=== PATIENT | female | born 1950 | race Caucasian/White ===

== ENCOUNTER → 2017-03-05 | Outpatient (CLI) | payer MEDICARE, OTHER ==
[2014-04-21 02:16] VITALS: BP 118/58
[~2017-03-05] VITALS: Ht 165.1 cm; Wt 99.8 kg
[~2017-03-05] MED LIST: BUPR100T6 PO; HYDR-2758 PO; MULT1TAB52 PO; NAPR-514 PO; PRIM50TA PO; PROP20TA PO; SINCALIDE 2 MCG in IV NORMAL SALINE 50ML 30 ML IV ONE; VALS1TAB8 PO; VENL75CA PO; [UNRECOGNIZED DRUG - OTHER] PO
--- NOTE | 2017-03-05 09:29 | RAD ---
Right upper quadrant abdominal ultrasound, 03/05/2017: History: Pain The gallbladder is within normal limits in size. There is no sonographic evidence of cholelithiasis. The common hepatic duct is of normal caliber. No hepatic mass is evident. The visualized portions of the pancreas are unremarkable. There is a 2.6 cm simple cyst in the right kidney. The right kidney shows no other abnormality. IMPRESSION: 1. No significant gallbladder abnormality is detected. 2. Small right renal cyst.
--- NOTE | 2017-03-05 11:41 | RAD ---
Radionuclide hepatobiliary scan with gallbladder ejection fraction, 03/05/2017: History: Right upper quadrant pain Following IV injection of 5.5 mCi of technetium 99m Choletec there was prompt uptake of the radionuclide from the blood stream by the liver. Activity is present in the bile ducts and small bowel at 10 minutes. Gallbladder activity develops at 25 minutes. Additional imaging of the gallbladder was then performed following IV injection of 2.0 mcg of cholecystokinin. The gallbladder ejection fraction is 93%. IMPRESSION: 1. Normal radionuclide hepatobiliary scan. 2. The gallbladder ejection fraction is 93%.
== END ==
LOC: US 07:30
PROVIDERS: ATTEND Internal Medicine Gastroenterology
DX: R10.11 Right upper quadrant pain (principal); I10 Essential (primary) hypertension
CPT/HCPCS: 76705; 78226; 96374; 96375; A9537; J2805

== ENCOUNTER → 2017-04-08 | Outpatient (CLI) | payer MEDICARE, OTHER ==
[2014-04-21 02:16] VITALS: BP 118/58
[~2017-04-08] MED LIST changes: -NAPR-514 PO; +NAPR500T4 PO; -SINCALIDE 2 MCG in IV NORMAL SALINE 50ML 30 ML IV ONE
--- NOTE | 2017-04-08 15:51 | RAD ---
Left breast ultrasound History: Outside 3-D mammogram raises possibility of asymmetry in the left breast on MLO tomographic views. Comparison: MLO tomographic views from outside mammogram 12/08/2016. CC tomographic views were not available or obtained. Findings: Ultrasound imaging was performed of the left breast by tissue technologist at 2:00 and 3:00. No solid or cystic masses are identified. Normal breast parenchyma is seen. Impression: No sonographic abnormality. BI-RADS CATEGORY: 1 NEGATIVE RECOMMENDED FOLLOW-UP: 12M 12 MONTH FOLLOW-UP
== END | disposition home or self-care (01) ==
LOC: US 14:31
PROVIDERS: ATTEND Nurse Practitioner Family
DX: R92.8 Other abnormal and inconclusive findings on diagnostic imaging of breast (principal)
CPT/HCPCS: 76641

== ENCOUNTER → 2018-01-04 | Outpatient (CLI) | payer MEDICARE, OTHER ==
[2014-04-21 02:16] VITALS: BP 118/58
[~2018-01-04] MED LIST changes: +NAPR-514 PO; -NAPR500T4 PO
--- NOTE | 2018-01-04 13:20 | RAD ---
PQRS Compliance statement: One or more of the following individualized dose reduction techniques were utilized for this examination: 1. Automated exposure control. 2. Adjustment of the mA and/or kV according to patient size. 3. Use of iterative reconstruction technique. Indication:FALL FIVE DAYS AGO. Bruising AROUND BILATERAL EYES, SOME SWELLING. NO LOC, NAUSEA OR VISUAL DISTURBANCE. FX NASAL BONES
TECHNIQUE: CT of the maxillofacial bones without IV contrast multiplanar reformats. COMPARISON: None FINDINGS: Mildly displaced right nasal bone fracture. Hyperostosis frontalis noted. Diffuse dystrophic calcifications are seen of the falx cerebri. No acute calvarial fractures. The paranasal sinuses and mastoid air cells are clear. The mandible and temporomandibular joints are within normal limits. The lenses, globes, extraocular muscles and intraorbital fat are within normal limits. Mild bilateral periorbital soft tissue swelling noted. IMPRESSION: Mildly displaced right nasal bone fracture. Indication:FALL FIVE DAYS AGO. BRUSING AROUND BILATERAL EYES, SOME SWELLING. NO LOC, NAUSEA OR VISUAL DISTURBANCE. FX NASAL BONES
TECHNIQUE: CT of the cervical spine without IV contrast with multiplanar reformats. COMPARISON:None FINDINGS: There is loss of normal cervical lordosis. This could be due to muscle spasm or positioning. Atlantoaxial joint interval is preserved with mild degenerative changes. No compression deformities. Facet joints are in normal anatomic alignment. Multilevel intervertebral disc space narrowing is seen with endplate sclerosis and multilevel facet arthropathy. No acute fractures. Segmental analysis: C2-C3: Mild circumferential disc bulge flattening anterior thecal sac. Mild bilateral facet arthropathy. No neuroforamina narrowing. C3-C4: Mild circumferential disc bulge flattening intrathecal sac. Severe left and mild right facet arthropathy. Severe left and moderate right neuroforamina narrowing. C4-C5: Mild circumferential disc bulge flattening intrathecal sac. Severe bilateral facet arthropathy. Severe bilateral neuroforamina narrowing. C5-C6: Large central disc osteophyte complex indenting anterior thecal sac. Moderate bilateral facet arthropathy. Moderate bilateral neuroforamina narrowing. There is moderate spinal canal narrowing measuring 6 mm in AP dimension. C6-C7: Mild circumferential disc bulge. Severe bilateral facet arthropathy. Severe bilateral neuroforamina narrowing. The noncontrast appearance of the neck soft tissues are within normal limits. Clear lung apices. IMPRESSION: 1. No acute fractures. 2. Multilevel degenerative disc disease and facet arthropathy causing varying amount of neural foramina narrowing and spinal canal narrowing as described above. Electronically signed by: Sukumar Etienne DO (01/04/2018 1:17 PM) [facility]
== END | disposition home or self-care (01) ==
LOC: CT 10:59
PROVIDERS: ATTEND Neuromusculoskeletal Medicine & OMM
DX: S02.2XXA Fracture of nasal bones, initial encounter for closed fracture (principal); M50.30 Other cervical disc degeneration, unspecified cervical region; M25.78 Osteophyte, vertebrae; M48.02 Spinal stenosis, cervical region; M12.88 Other specific arthropathies, not elsewhere classified, other specified site; M85.2 Hyperostosis of skull; M79.89 Other specified soft tissue disorders; W19.XXXA Unspecified fall, initial encounter; Y93.89 Activity, other specified; Y92.89 Other specified places as the place of occurrence of the external cause; Y99.8 Other external cause status
CPT/HCPCS: 70486; 72125

== ENCOUNTER 2018-05-28 02:58 | Observation (INO) | payer MEDICARE, OTHER ==
[~2018-05-28] VITALS: Ht 165.1 cm; Wt 115.4 kg
[2018-05-28] VITALS (8 sets, daily range): BP systolic 148–186; BP diastolic 75–101
[~2018-05-28 02:58] MED LIST changes: +HYDR-2155 PO; -HYDR-2758 PO
[2018-05-28] MEDS ORDERED: VITA1TAB3 PO (03:38)
[2018-05-28] MEDS ORDERED: vitamin D (03:38)
--- NOTE | 2018-05-28 03:38 | PHYS DOC ---
Adult General Chief Complaint Chief Complaint cp HPI HPI 68 years old female presented to the hospital with the chest pain described as pressure-like rated as 5 out of 10 FROM sleep and radiated to her jaw did not associated with shortness breath or sweating felt a little bit of tachycardia and then resolved she never experienced this pain before denies any history of coronary artery disease in emergency department her pain level 2/10 Review of Systems Review of Systems Constitutional: Denies fever or chills [] Eyes: Denies change in visual acuity, redness, or eye pain [] HENT: Denies nasal congestion or sore throat [] Respiratory: Denies cough or shortness of breath [] Cardiovascular: No additional information not addressed in HPI [] GI: Denies abdominal pain, nausea, vomiting, bloody stools or diarrhea [] : Denies dysuria or hematuria [] Musculoskeletal: Denies back pain or joint pain [] Integument: Denies rash or skin lesions [] Neurologic: Denies headache, focal weakness or sensory changes [] Endocrine: Denies polyuria or polydipsia [] All other systems were reviewed and found to be within normal limits, except as documented in this note. Current Medications Current Medications Current Medications Medications (Trade) Dose Ordered Sig/Celia Start Time Stop Time Status Last Admin Dose Admin Aspirin (Tish Aspirin) 325 mg 1X ONCE 05/28/18 03:45 05/28/18 03:46 UNV Allergies Allergies Allergies Coded Allergies Type Severity Reaction Last Updated Verified ampicillin Allergy Intermediate rash 11/27/13 No codeine Allergy Unknown RASH 04/21/14 No Physical Exam Physical Exam Constitutional: Well developed, well nourished, no acute distress, non-toxic appearance. [] HENT: Normocephalic, atraumatic, bilateral external ears normal, oropharynx moist, no oral exudates, nose normal. [] Eyes: PERRLA, EOMI, conjunctiva normal, no discharge. [] Neck: Normal range of motion, no tenderness, supple, no stridor. [] Cardiovascular:Heart rate regular rhythm, no murmur [] Lungs & Thorax: Bilateral breath sounds clear to auscultation [] Abdomen: Bowel sounds normal, soft, no tenderness, no masses, no pulsatile masses. [] Skin: Warm, dry, no erythema, no rash. [] Back: No tenderness, no CVA tenderness. [] Extremities: No tenderness, no cyanosis, no clubbing, ROM intact, no edema. [] Neurologic: Alert and oriented X 3, normal motor function, normal sensory function, no focal deficits noted. [] Psychologic: Affect normal, judgement normal, mood normal. [] EKG EKG No acute ischemic changes[] Radiology/Procedures Radiology/Procedures [] Course & Med Decision Making Course & Med Decision Making Pertinent Labs and Imaging studies reviewed. (See chart for details) [] Final Impression Final Impression [] Problems: (1) Chest pain Qualifiers: Dragon Disclaimer Dragon Disclaimer This electronic medical record was generated, in whole or in part, using a voice recognition dictation system. ANTONIO NICHOLS MD May 28, 2018 03:38
[2018-05-28 03:42] LABS: HEMATOCRIT 41.1 % (36.0-47.0); HEMOGLOBIN 13.4 g/dL (12.0-15.5); RED BLOOD COUNT 4.83 x10^6/uL (3.50-5.40); RED CELL DISTRIBUTION WIDTH 14.5 % (11.5-14.5); WHITE BLOOD COUNT 5.1 x10^3/uL (4.0-11.0)
[2018-05-28] MEDS ORDERED: NITROGLYCERIN SUBLINGUAL 0.4 MG BOTTLE OF 25. SL PRN (03:45)
[2018-05-28] MEDS ORDERED: MORPHINE SULFATE 4 MG/ML DISP.SYRIN. IV PRN (03:45)
[2018-05-28] MEDS ORDERED: NITROGLYCERIN SUBLINGUAL 0.4 MG BOTTLE OF 25. SL ONE (03:45)
[2018-05-28] MEDS ORDERED: PANTOPRAZOLE 40 MG TABLET. PO ONE (03:45)
[2018-05-28] MEDS ORDERED: ASPIRIN 325 MG TABLET PO ONE (03:45)
[2018-05-28] MEDS ORDERED: NITROGLYCERIN OINT 1 GM PACKET. TP ONE (03:45)
[2018-05-28] MEDS ORDERED: ACETAMINOPHEN 325 MG TABLET PO PRN (03:45)
[2018-05-28] MEDS ORDERED: ONDANSETRON PF 4 MG/2 ML VIAL. IV PRN (03:45)
[2018-05-28 03:57] LABS: CALCIUM 9.1 mg/dL (8.5-10.1); CREATININE 1.1 mg/dL (0.6-1.0); GFR 49.1
--- NOTE | 2018-05-28 07:45 | RAD ---
PROCEDURE: CHEST AP ONLY CLINICAL INDICATION: Chest pain COMPARISON: None FINDINGS: No pneumothorax identified. Cardiac and mediastinal contours unremarkable. No pulmonary consolidation or acute airspace disease. No acute osseous abnormalities identified. IMPRESSION: No pulmonary consolidation or acute airspace disease. Electronically signed by: Sukumar Etienne DO (05/28/2018 7:42 AM) [facility]
--- NOTE | 2018-05-28 09:08 | PDOC2 ---
CONSULT Date of Admission DATE: 05/28/18 TIME: 09:08 History of Present Illness Ms Aleman is a 68 year old female patient with history of hypertension, palpitations and dizziness with an essentially normal echo in Apr revealing normal LV function and wall motion, trace to mild MR, borderline LVH, . She was seen recently for evaluation of dizziness most consistent with vertigo. She was recommended to have repeat echocardiogram and to wear holter monitor to rule out arrhythmias. She reports waking middle of night last night feeling her heart was pounding and beating rapidly with associated pressure that radiated to her jaw. She reports spontaneous resolution after a minute or so but was worried about waiting to Mid June for her testing and follow up so presented to the ED for evaluation. She reports one prior episode of irregular heart beat described as racing, also noted during hours of sleep. She denies other symptoms such as chest pain while awake, congestive symptoms or syncope. She does relate an episode some months ago where she had a fall from standing and suffered a broken nose. She denies any preceeding symptoms, or loss of consciousness. She reports walking around the end of a table and "like tripped on nothing". She says she remembers falling and hitting floor but couldn't move even to put hands up to break fall. She has had no reoccurrence of this episode. She believes this may have been a side effect of a migraine medication she was taking at the time as she had several other side effects and all resolved on stopping the med. Past Medical History essential tremor, hypertension, depression, anxiety, osteoarthritis, gastric ulcer, ocular migraines, bilateral hearing loss with hearing aids, chronic kidney disease, history of frozen shoulder, palpitations and fall with facial trauma Past Surgical History hysterectomy, tonsillectomy, carpal tunnel(left), knee surgery (left), back surgery, left stereotactic br bx. Family History pancreatic cancer, diabetes and depression Social History never smoked, no significant ETOH, no illicit drugs Current Medications Current Medications Aspirin (Tish Aspirin) 325 mg 1X ONCE PO Last administered on 05/28/18at 04:00 ; Start 05/28/18 at 03:45; Stop 05/28/18 at 03:46; Status DC Nitroglycerin (Nitro-Bid Oint) 1 inch 1X ONCE TP Last administered on at 03:45; Start 05/28/18 at 03:45; Stop 05/28/18 at 03:46; Status DC Nitroglycerin (Nitrostat) 0.4 mg 1X ONCE SL ; Start 05/28/18 at 03:45; Stop at 03:46; Status DC Pantoprazole Sodium (Protonix) 40 mg 1X ONCE PO Last administered on at 04:00; Start 05/28/18 at 03:45; Stop 05/28/18 at 03:46; Status DC Ondansetron HCl (Zofran) 4 mg PRN Q4HRS PRN IV NAUSEA/VOMITING; Start 05/28/18 at 03:45; Stop 05/29/18 at 03:44 Morphine Sulfate (Morphine 4mg Syringe) 4 mg PRN Q2HR PRN IV PAIN; Start at 03:45; Stop 05/29/18 at 03:44 Acetaminophen (Tylenol) 650 mg PRN Q4HRS PRN PO FEVER; Start 05/28/18 at 03:45 ; Stop 05/29/18 at 03:44 Nitroglycerin (Nitrostat) 0.4 mg PRN Q5MIN PRN SL CHEST PAIN; Start 05/28/18 at 03:45; Stop 05/29/18 at 03:44 Metoprolol Tartrate (Lopressor) 25 mg BID PO ; Start 05/28/18 at 09:15 Active Scripts Active Reported [vitamin D] Vitamin B Complex 1 Each Tablet 1 Each PO DAILY Primidone 50 Mg Tablet 25 Mg PO PRN Q6HRS PRN take as needed for pain not given this admission Multivitamins (Multivitamin) 1 Each Tablet 1 Each PO DAILY supplement last dose: 11/28 @ 9:05 AM next dose: 11/29 AM Propranolol Hcl 20 Mg Tablet 20 Mg PO BID for high blood pressure & migraines last dose: 11/28 @ 9:05 AM next dose: 11/28 PM Wellbutrin (Bupropion Hcl) 100 Mg Tablet 100 Mg PO DAILY for depression last dose: 11/28 @ 9:05 AM next dose: 11/29 AM Diovan Hct 160-12.5 Mg Tab (Valsartan/Hydrochlorothiazide) 1 Each Tablet 1 Each PO DAILY for high blood pressure last dose: 11/28 @ 9:05 AM next dose: 11/29 AM Allergies: Coded Allergies: ampicillin (Unverified Allergy, Intermediate, rash, 05/28/18) eucalyptus (Verified Allergy, Intermediate, 05/28/18) codeine (Unverified Allergy, Unknown, RASH, 05/28/18) Review of System chest pain, palpitations, anxiety General: Alert, Oriented X3, Cooperative, No acute distress HEENT: Atraumatic, Mucous membr. moist/pink Lungs: Clear to auscultation, Normal air movement Heart: Normal S1, Normal S2, Other (no gallops, clicks or rubs) Abdomen: Normal bowel sounds, Soft, No tenderness Extremities: No cyanosis, Other (1+ edema) Neuro: Normal speech, Strength at 5/5 X4 ext Psych/Mental Status: Mood NL VITALS Vital Signs Date Time Temp Pulse Resp B/P (MAP) Pulse Ox O2 Delivery O2 Flow Rate FiO2 05/28/18 05:26 97.6 65 16 152/75 (100) 96 Room Air Labs Laboratory Tests Test 05/28/18 03:20 05/28/18 06:40 White Blood Count 5.1 x10^3/uL (4.0-11.0) Red Blood Count 4.83 x10^6/uL (3.50-5.40) Hemoglobin 13.4 g/dL (12.0-15.5) Hematocrit 41.1 % (36.0-47.0) Mean Corpuscular Volume 85 fL (79-100) Mean Corpuscular Hemoglobin 28 pg (25-35) Mean Corpuscular Hemoglobin Concent 33 g/dL (31-37) Red Cell Distribution Width 14.5 % (11.5-14.5) Platelet Count 249 x10^3/uL (140-400) Sodium Level 143 mmol/L (136-145) Potassium Level 4.0 mmol/L (3.5-5.1) Chloride Level 106 mmol/L (98-107) Carbon Dioxide Level 31 mmol/L (21-32) Anion Gap 6 (6-14) Blood Urea Nitrogen 17 mg/dL (7-20) Creatinine 1.1 mg/dL (0.6-1.0) Estimated GFR (Cockcroft-Gault) 49.1 Glucose Level 80 mg/dL (70-99) Calcium Level 9.1 mg/dL (8.5-10.1) Troponin I Quantitative < 0.017 ng/mL (0-0.055) < 0.017 ng/mL (0-0.055) Images sinus rhythm without acute ischemic changes Assessment/Plan 1. chest pain atypical more consistent with palpitations. - No acute ischemic changes. will repeat echo. Sg remain negative. outpatient MPI. 2. palpitations - extended holter on discharge. 3. hypertension - resume home medications. 4. mild renal insufficiency, likely chronic. Echo today, will provide outpatient monitor for discharge. Echo could be completed outpatient if unable to complete today. ALEXIS SEE APRN May 28, 2018 09:08
[2018-05-28] MEDS ORDERED: METOPROLOL TART IMMED RELEASE 25 MG TABLET PO SCH (09:15)
--- NOTE | 2018-05-28 16:02 | CARD ---
MR#: [id number] Date of Study: 05/28/2018 Ordering Physician: ALEXIS SEE, Referring Physician: CHRIS FINLEY Tech: Maddie Hawkins RENU APPROVED REPORT EXAM: Two-dimensional and M-mode echocardiogram with Doppler and color Doppler. Other Information Quality : Technically LimitedHR: 68bpm Rhythm : NSRTechnically limited study due to body habitus. INDICATION Chest Pain 2D DIMENSIONS RVDd3.0 (2.9-3.5cm)Left Atrium(2D)4.9 (1.6-4.0cm) IVSd1.0 (0.7-1.1cm)Aortic Root(2D)2.8 (2.0-3.7cm) LVDd4.3 (3.9-5.9cm)LVOT Diameter1.8 (1.8-2.4cm) PWd1.1 (0.7-1.1cm)LVDs2.9 (2.5-4.0cm) FS (%) 31.5 %SV49.0 ml LVEF(%)59.7 (>50%) M-Mode DIMENSIONS Left Atrium(MM)4.33 (2.5-4.0cm)Aortic Root3.11 (2.2-3.7cm) Aortic Valve AoV Peak Ap.157.0cm/sAoV VTI38.4cm AO Peak GR.9.9mmHgLVOT Peak Ap.100.8cm/s LVOT VTI 22.13cmAO Mean GR.5mmHg MEHDI (VMAX)1.69yv5OTM (VTI)1.40cm2 Mitral Valve MV E Rlyutewi652.5cm/sMV E Peak Gr.5mmHg MV DECEL [id number] A Xqfnsrfi65.2cm/s MV E Mean Gr.2mmHgE/A Ratio1.3 MV A Zgrbzxdv60ib Pulmonary Valve PV Peak Bcuhwqyy57.3cm/sPV Peak Grad.3mmHg Tricuspid Valve TR P. Zkzgqzie238ao/sRAP ZJPYAMGO9ceCc TR Peak Gr.21byOcPEYZ98esLq LEFT VENTRICLE The left ventricle is normal size. There is normal left ventricular wall thickness. The left ventricu lar systolic function is normal and the ejection fraction is within normal range. The Ejection Fracti on is 55-60%. There is normal LV segmental wall motion. Transmitral Doppler flow pattern is Grade II- pseudonormal filling dynamics. RIGHT VENTRICLE The right ventricle is normal size. There is normal right ventricular wall thickness. The right ventr icular systolic function is normal. ATRIA The left atrium is borderline dilated. The right atrium is borderline dilated. The interatrial septum is intact with no evidence for an atrial septal defect or patent foramen ovale as noted on 2-D or Do ppler imaging. AORTIC VALVE The aortic valve is not well visualized. Doppler and Color Flow revealed trace significant aortic reg urgitation. There is no significant aortic valvular stenosis. MITRAL VALVE The mitral valve is thickened but opens well. There is no evidence of mitral valve prolapse. There is no mitral valve stenosis. Doppler and Color-flow revealed trace to mild mitral regurgitation. TRICUSPID VALVE The tricuspid valve is normal in structure and function. Doppler and Color Flow revealed trace tricus pid regurgitation. The PA pressure was estimated at 19 mmHg. There is no tricuspid valve prolapse or vegetation. There is no tricuspid valve stenosis. PULMONIC VALVE The pulmonic valve is not well visualized. GREAT VESSELS The aortic root is normal in size. The ascending aorta is normal in size. PERICARDIAL EFFUSION There is no evidence of significant pericardial effusion. Critical Notification Critical Value: No <Conclusion> The left ventricle is normal size. The left ventricular systolic function is normal and the ejection fraction is within normal range. The Ejection Fraction is 55-60%. There is no significant aortic valvular stenosis. Doppler and Color Flow revealed trace significant aortic regurgitation. Doppler and Color-flow revealed trace to mild mitral regurgitation. Doppler and Color Flow revealed trace tricuspid regurgitation. The PA pressure was estimated at 19 mmHg. Signed by : Ezequiel Paredes MD Electronically Approved : 05/28/2018 16:02:31
[2018-05-28] MEDS ORDERED: PRIMIDONE PO PRN (17:15)
[2018-05-28] MEDS ORDERED: DIGOXIN IV 500 MCG/2 ML AMPUL. IV ONE (17:45)
--- NOTE | 2018-05-28 17:55 | SSS ---
ADMIT DATE: HISTORY OF PRESENT ILLNESS: The patient is a 68-year-old female who has history of hypertension and also complaining of palpitation and dizziness. She was apparently evaluated for dizziness, most consistent with vertigo. She was recommended to have a repeat echocardiogram and to wear Holter monitor to rule out arrhythmias. She did state that she woke up at middle of the night, feeling her heart was pounding and beating rapidly, associated with pressure that radiated to her jaw. She had almost instantaneous resolution after a minute or so, but was worried about waiting to mid June for her testing to follow up and so presented to the Emergency Room for evaluation. She reports 1 episode of irregular heart rate, described as racing, noted also during hours of sleep. She denied any other symptoms, chest pain, congestive symptoms, syncope. She did have an episode of falling from standing and suffered a broken nose. She denied any loss of consciousness. In any case, the patient was admitted and was extensively evaluated. She had had an EKG which showed no acute ischemic changes. She has 3 sets of cardiac enzymes that ruled out myocardial infarction. Her echocardiogram was done and showed that her left ventricular systolic function is normal, ejection fraction is within normal range. The ejection fraction was 55-60%. There is no significant aortic valvular stenosis. Doppler and color flow revealed trace significant aortic regurgitation. Doppler and color flow revealed [id number] mitral regurgitation. Her pulmonary artery pressure was estimated at 90 mmHg. She was seen by the Cardiology team who recommended an extension of Holter monitor and to arrange for an outpatient nuclear stress test. For her palpitation an extended Holter on discharge. PAST MEDICAL HISTORY: Significant for essential tremors, hypertension, chronic kidney disease, history of frozen shoulder, palpitation and fall with facial trauma, osteoarthritis, ocular migraine, bilateral hearing loss with hearing aids and osteoarthritis as well as depression and anxiety. PAST SURGICAL HISTORY: Significant for hysterectomy, tonsillectomy, carpal tunnel and left knee surgery and back surgery, left stereotactic breast biopsy and brain biopsy. FAMILY HISTORY: Pancreatic cancer, diabetes and depression. SOCIAL HISTORY: She is , never smoked. No significant alcohol or no illicit drugs. ALLERGIES: SHE IS ALLERGIC TO AMPICILLIN, CODEINE AND EUCALYPTUS. MEDICATIONS: She is currently on propranolol 20 mg twice a day, valsartan hydrochlorothiazide 160/12.5 mg once a day, primidone 25 mg every 6 hours, Wellbutrin 100 mg daily, vitamin B complex one tablet once a day, multivitamin 1 tablet once a day, vitamin D once a day. REVIEW OF SYSTEMS: As per history of present illness. PHYSICAL EXAMINATION: GENERAL: On arrival to the hospital, she looked well and was clearly in no apparent respiratory distress. No pallor, jaundice, cyanosis, or thyromegaly. No jugular venous distension. No limb edema. VITAL SIGNS: Her heart rate was 72, blood pressure 156/82, temperature was 98.1, respiratory rate was 16, and oxygen saturation was 98%. HEAD, EYES, EARS, NOSE AND THROAT: Showed normocephalic, atraumatic. NECK: Supple. HEART: Showed normal first and second heart sounds. No gallop or murmur. CHEST: Clear to auscultation. No crepitation or rhonchi. ABDOMEN: Distended, soft, nontender. NEUROLOGIC: She is awake, alert, responding appropriately. All cranial nerves are intact. EXTREMITIES: She moves extremities without difficulty. She ambulates without assistance or assistive devices. LABORATORY DATA: Showed a white cell count of 5100, hemoglobin 13.4, hematocrit 41, MCV 85 and platelet count 249,000. Serum sodium 143, potassium 4, chloride 106, bicarbonate 31, anion gap of 6, BUN 17, creatinine 1.1, estimated GFR was 49 mL per minute, her glucose was 80, calcium was 9.1, has 2 sets of cardiac enzyme showed troponin to be less than 0.017. Her echocardiogram showed normal left ventricular systolic function and normal ejection fraction with no significant valvular disease. She will be discharged to continue on all her current medications. She will have an extended Holter monitoring and arrangement was made for her to have a nuclear stress test as an outpatient. FINAL DISCHARGE DIAGNOSES: Chest pain, myocardial infarction ruled out. Her echocardiograms were unremarkable, palpitation for which she would have an extended Holter on discharge. Hypertension seems to be well controlled, mild renal insufficiency, most likely chronic in nature. CHRIS FINLEY MD DR: AMEENA/queenie JOB#: [id number] / [id number]
[2018-05-28] MEDS: PROPRANOLOL 20 MG TABLET. PO SCH (20:20)
[2018-05-28] MEDS: APIXABAN 5 MG TABLET. PO SCH (20:21)
[2018-05-28] MEDS ORDERED: PRIMIDONE 50 MG TABLET PO SCH (21:00)
--- NOTE | 2018-05-28 21:53 | EKG ---
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
--- NOTE | 2018-05-28 21:56 | EKG ---
[address] [address] Test Date: 2018-05-28 Test Time: 03:10:07 Pat Name: FAUZIA BALDWIN Department: Room: 123 A Gender: F Supervisor Sample: REI : 1950 Requested By: ANTONIO NICHOLS Order Number: [id number] Reading MD: Eduard Osorio MD Measurements Intervals Finger Rate: 72 P: 38 WI: 148 QRS: -41 QRSD: 96 T: 34 QT: 398 QTc: 437 Interpretive Statements SINUS RHYTHM LAD Electronically Signed On 05-31-2018 10:05:46 CDT by Eduard Osorio MD
[2018-05-29 05:58] VITALS: BP 131/64
[2018-05-29] MEDS: APIXABAN 5 MG TABLET. PO SCH (08:47)
[2018-05-29] MEDS: PROPRANOLOL 20 MG TABLET. PO SCH (08:47)
[2018-05-29] MEDS ORDERED: DULoxetine HCL 60 MG CAPSULE.DR PO SCH (09:00)
[2018-05-29] MEDS ORDERED: LOSARTAN 50 MG TABLET. PO SCH (09:00)
[2018-05-29] MEDS ORDERED: VITAMIN B COMPLEX CAPSULE. PO SCH (09:00)
[2018-05-29] MEDS ORDERED: MULTIVITAMIN with MINERAL TABLET. PO SCH (09:00)
[2018-05-29] MEDS ORDERED: buPROPion XL 300 MG TAB.ER.24H. PO SCH (09:00)
[2018-05-29] MEDS ORDERED: hydroCHLOROthiazide 12.5 MG CAPSULE PO SCH (09:00)
[2018-05-29] MEDS ORDERED: buPROPion 100 MG TABLET PO SCH (09:00)
[2018-05-29 11:02] VITALS: BP 135/61
--- NOTE | 2018-05-29 12:35 | PN ---
DATE: 05/29/2018 SUBJECTIVE: The patient is a 68-year-old female patient, who was admitted yesterday with chest pain that described as pressure like, rated as 5/10, awakened her from sleep, radiating to her jaw. It is not associated with any shortness of breath, sweating, felt a little bit of tachycardia; however, that resolved. She has never experienced any pain like that before, has never had any history of coronary artery disease, and she came to the Emergency Room for further evaluation. By the time she arrived there, her pain was rated about 2/10. She has had 2 sets of cardiac enzymes that were normal and in fact, we have nearly discharged her yesterday with a plan to go home with a Holter monitor; however, before she leaves the premises, she went into atrial fibrillation with a rapid ventricular response. Her heart rate went up to 158. In fact, she went up even higher 177 on the monitor while I was in the ICU. She was given 500 mcg of digoxin and consultation with the Cardiology team, she was started on a Cardizem drip. She apparently was given also Cardizem 180 mg once last night and she basically converted to sinus rhythm. In fact, this morning, she is in sinus bradycardia with a heart rate down to 47. On questioning her this morning, she denied any complaint, in particular she has a very good night sleep. PHYSICAL EXAMINATION: GENERAL: When I examined her, she looked well and was clearly in no apparent respiratory distress. No pallor, jaundice, cyanosis, or thyromegaly. No jugular venous distension. No lower limb edema. VITAL SIGNS: Her heart rate was 59, blood pressure was 131/64, temperature was 97.9, respiratory rate was 16, and oxygen saturation was 95%. HEAD, EYES, EARS, NOSE AND THROAT: Showed normocephalic, atraumatic. NECK: Supple. HEART: Showed normal first and second heart sounds. No gallop, rub or murmur. CHEST: Clear to auscultation. No crepitation or rhonchi. ABDOMEN: Distended, soft, nontender. NEUROLOGIC: She was awake, alert, responding appropriately. All cranial nerves are intact. She moves extremities without difficulty. She ambulates without assistance or assistive devices. Her intake was 1700, no output was recorded. LABORATORY DATA: As of yesterday showed a serum sodium 143, potassium 4, chloride 106, bicarbonate 31, anion gap of 6, BUN 17, creatinine 1.1, estimated GFR was 49 mL per minute. Her glucose was 80, calcium was 9.1. Her serum triglycerides was 49, total cholesterol was 62. LDL cholesterol 76, VLDL was 9, and HDL was 77, her ratio was 2. Her white cell count was 5100, hemoglobin 13, hematocrit 41, MCV 85 and platelet count 249,000. ASSESSMENT: 1. Atrial fibrillation with rapid ventricular response. The patient has converted to sinus rhythm. In fact, she now has sinus bradycardia. At one point, her heart rate was down to 47. 2. Other medical problems include benign familial essential tremors. 3. Hypertension. 4. Chronic kidney disease. 5. Osteoarthritis. 6. Ocular migraine. 7. Bilateral hearing loss with hearing aids. 8. Depression and anxiety. We are obviously awaiting the Cardiology team evaluation as patient's heart rate now is down to 47 beats per minute. She was supposed to be on both Inderal and Cardizem drip, Cardizem at 180 mg. I will check her labs again and her TSH. Await Cardiology team evaluation. CHRIS FINLEY MD DR: AMEENA/queenie JOB#: [id number] / [id number]
[2018-05-29 14:42] VITALS: BP 135/61
== END 2018-05-29 15:34 | disposition home or self-care (01) ==
LOC: ER 02:58 → 1 SOUTH 03:50 → INTOOBSV 03:50
PROVIDERS: ADMIT Internal Medicine; ATTEND Internal Medicine
DX: R07.89 Other chest pain (principal); R42 Dizziness and giddiness; R00.2 Palpitations; M19.90 Unspecified osteoarthritis, unspecified site; F32.9 Major depressive disorder, single episode, unspecified; F41.9 Anxiety disorder, unspecified; G25.0 Essential tremor; N18.9 Chronic kidney disease, unspecified; Z80.0 Family history of malignant neoplasm of digestive organs; Z81.8 Family history of other mental and behavioral disorders; Z83.3 Family history of diabetes mellitus; Z87.11 Personal history of peptic ulcer disease; Z90.710 Acquired absence of both cervix and uterus; Z97.4 Presence of external hearing-aid; I48.91 Unspecified atrial fibrillation; I12.9 Hypertensive chronic kidney disease with stage 1 through stage 4 chronic kidney disease, or unspecified chronic kidney disease; G43.109 Migraine with aura, not intractable, without status migrainosus
CPT/HCPCS: 36415; 71045; 80048; 80061; 84484; 85027; 93005; 93306; 96374; 99284; G0378; J1160; G0379

== ENCOUNTER 2018-06-01 06:19 | Emergency (ER) | payer MEDICARE, OTHER ==
[~2018-06-01] VITALS: Ht 165.1 cm; Wt 117.0 kg
[~2018-06-01 06:19] MED LIST changes: +VITA1TAB3 PO; +vitamin D
[2018-06-01] MEDS ORDERED: NITROGLYCERIN SUBLINGUAL 0.4 MG BOTTLE OF 25. SL PRN (06:45)
[2018-06-01] MEDS ORDERED: ASPIRIN 81 MG TAB.CHEW PO ONE (06:45)
--- NOTE | 2018-06-01 06:49 | PHYS DOC ---
Past History Past Medical History: A-Fib, Anxiety, Depression, Hypertension, Migraines, Other Past Surgical History: Hysterectomy, Tonsillectomy, Other Smoking: Non-smoker Alcohol Use: None Drug Use: None Adult General Chief Complaint Chief Complaint: CHEST PAIN HPI HPI Patient is a 68 year old female who presents with complaining of chest pain. Patient states she woke up at 4 AM because of intermittent episodes of left chest pain as a sharp pain with radiation to her back that last for a few minutes and repeated several times. Patient complaining of shortness of breath and palpitation without nausea, dizziness, fever and chills. Patient rated her pain 0 at arrival to ER. Patient denies change of pain with taking deep breaths and position. Patient denies taking any medication today.She was admitted at Hospital with the same pain one week ago and diagnosed with atrial fibrillation and Cartia was started. Review of Systems Review of Systems Constitutional: Denies fever or chills [] Eyes: Denies change in visual acuity, redness, or eye pain [] HENT: Denies nasal congestion or sore throat [] Respiratory: Denies cough or shortness of breath [] Cardiovascular: No additional information not addressed in HPI [] GI: Denies abdominal pain, nausea, vomiting, bloody stools or diarrhea [] : Denies dysuria or hematuria [] Musculoskeletal: Denies back pain or joint pain [] Integument: Denies rash or skin lesions [] Neurologic: Denies headache, focal weakness or sensory changes [] Endocrine: Denies polyuria or polydipsia [] All other systems were reviewed and found to be within normal limits, except as documented in this note. Current Medications Current Medications Current Medications Medications (Trade) Dose Ordered Sig/Celia Start Time Stop Time Status Last Admin Dose Admin Aspirin (Children'S Aspirin) 324 mg 1X ONCE 06/01/18 06:45 06/01/18 06:46 UNV Nitroglycerin (Nitrostat) 0.4 mg PRN Q5MIN PRN 06/01/18 06:45 06/02/18 06:44 UNV Allergies Allergies Allergies Coded Allergies Type Severity Reaction Last Updated Verified ampicillin Allergy Intermediate rash 05/28/18 No codeine Allergy Intermediate RASH 05/28/18 No eucalyptus Allergy Intermediate 05/28/18 Yes Physical Exam Physical Exam Constitutional: Well developed, well nourished, mild distress, non-toxic appearance, morbidly obese. [] HENT: Normocephalic, atraumatic Eyes: PERRLA, EOMI, conjunctiva normal, no discharge. [] Neck: Normal range of motion, no tenderness, supple, no stridor. [] Cardiovascular:Heart rate regular rhythm, no murmur [] Lungs & Thorax: Bilateral breath sounds clear to auscultation [] Abdomen: Bowel sounds normal, soft, no tenderness, no masses, no pulsatile masses. [] Skin: Warm, dry, no erythema, no rash. [] Back: No tenderness, no CVA tenderness. [] Extremities: No tenderness, no cyanosis, no clubbing, ROM intact, no edema. [] Neurologic: Alert and oriented X 3, normal motor function, normal sensory function, no focal deficits noted. [] Psychologic: Affect normal, judgement normal, mood normal. [] Current Patient Data Vital Signs Vital Signs Date Time Temp Pulse Resp B/P (MAP) Pulse Ox O2 Delivery O2 Flow Rate FiO2 06/01/18 06:19 98.1 69 22 98 Room Air EKG EKG KG interpreted by me. EKG at 6026 showed normal sinus rhythm at rate of 66, left axis deviation, left inferior fascicular block, T-wave abnormalities in lateral leads, no acute ST and T-wave abnormalities. Radiology/Procedures Radiology/[place] [address] IMAGING REPORT Signed PATIENT: FAUZIA BALDWIN ACCOUNT: [id number] : 1950 LOCATION: ER AGE: 68 SEX: F EXAM STATUS: REG ER ORD. PHYSICIAN: SEE HERNANDEZ MD REASON: chest pain PROCEDURE: PORTABLE CHEST 1V Portable chest, 06/01/2018: HISTORY: Chest pain Comparison is made to a study from 05/28/2018. An electronic device is now evident projected over the left upper chest. The heart is within normal limits in size for the AP technique. The pulmonary vascularity is normal. No pulmonary infiltrate is seen. There is no evidence of pleural fluid. A left shoulder prosthesis is in place. IMPRESSION: No acute cardiopulmonary abnormality is detected. Electronically signed by: Ren Osorio MD (06/01/2018 7:47 AM) [facility] DICTATED AND SIGNED BY: REN OSORIO MD DATE: 06/01/18746 CC: SEE HERNANDEZ MD; PCP,NO ~ [address] [address] IMAGING REPORT Signed PATIENT: FAUZIA BALDWIN ACCOUNT: [id number] : 1950 LOCATION: ER AGE: 68 SEX: F EXAM STATUS: REG ER ORD. PHYSICIAN: SEE HERNANDEZ MD REASON: chest pain and shortness of breath and elevated d-dimer, A Fib PROCEDURE: CT ANGIOGRAPHY CHEST PQRS Compliance Statement: One or more of the following individualized dose reduction techniques were utilized for this examination: 1. Automated exposure control 2. Adjustment of the mA and/or kV according to patient size 3. Use of iterative reconstruction technique CT CHEST WITH CONTRAST, PULMONARY ANGIOGRAM History: Increased D-Dimer, chest pain, A-Fib, shortness of air. Comparison: None. Technique: Helical CT of the chest was performed after the administration of 100 cc of Omnipaque 350 intravenous contrast according to PE protocol. Axial and coronal reconstructions were obtained. 3-D MIP images were constructed to better evaluate the pulmonary arteries. Findings: Pulmonary arteries are adequately opacified. There is no evidence of pulmonary embolism. There is no thoracic aortic dissection. The great vessels are normal caliber. There are subcentimeter mediastinal and bilateral hilar lymph nodes. There is no adenopathy. Cardiac size normal, no pericardial effusion. There is small hiatal hernia. There is circumferential wall thickening of the distal esophagus. No pleural effusion. The central airways are patent. Tiny calcified granuloma right upper lobe. There is minimal dependent atelectasis in the bilateral lower lobes. There is minimal atelectasis or scarring in the inferior lingula. Lungs otherwise clear. There is a 1.4 cm soft tissue mass of the uncinate process of the pancreas versus a christiana hepatis lymph node. Old compression fracture treated with vertebroplasty of the T9 vertebral body. There is slight retropulsion without significant central canal stenosis. There is left shoulder arthroplasty. IMPRESSION: 1. There is no CT evidence of pulmonary embolus. 2. There is small soft tissue mass of the uncinate process of the pancreas versus a christiana hepatis lymph node. Recommend further evaluation with pancreas protocol CT or MR abdomen. 3. Small hiatal hernia. 4. Circumferential wall thickening of the distal esophagus. Considerations include esophagitis, Ashby's esophagus, or esophageal neoplasm. Electronically signed by: Mushtaq Arroyo MD (06/01/2018 9:29 AM) [id number] DICTATED AND SIGNED BY: MUSHTAQ ARROYO MD DATE: 06/01/1829 CC: SEE HERNANDEZ MD; PCP,NO ~ Course & Med Decision Making Course & Med Decision Making Pertinent Labs and Imaging studies reviewed. (See chart for details) Evaluation of patient in ER showed 68-year-old female patient with history of recent hospitalization and complaining of intermittent episodes of left-sided chest pain since 4 AM. Patient unremarkable physical exam except for mild anxiety. EKG and labs was unremarkable except for elevation of d-dimer. Patient treated with Ativan and felt better. Patient had mild elevation of d-dimer and CT of chest did not show PE but showed esophageal wall thickening. Patient denied history of heart burn or problems with eating. Patient was advised about the test results and needs to follow-up with GI specialist. Dragon Disclaimer Dragon Disclaimer This electronic medical record was generated, in whole or in part, using a voice recognition dictation system. Departure Departure: Impression: Primary Impression: Chest pain Additional Impressions: Palpitation Anxiety Esophageal thickening Disposition: HOME, SELF-CARE (at 0945) Condition: IMPROVED Referrals: PCP,NO (PCP) Patient Instructions: Chest Pain (Nonspecific), Palpitations Additional Instructions: Drink plenty of liquids Follow-up with your primary care physician in 2-3 days for esophageal changes in CT and needs to follow up with GI specialist Return to ER if not getting better Follow-up with your flight engineer helicopter and Holter monitor instruction Problem Qualifiers Primary Impression: Chest pain Chest pain type: unspecified Qualified Codes: R07.9 - Chest pain, unspecified SEE HERNANDEZ MD Jun 01, 2018 06:49
[2018-06-01 06:50] LABS: BASO # 0.1 x10^3/uL (0.0-0.2); BASO % 1 % (0-3); EOS # 0.2 x10^3/uL (0.0-0.7); EOS % 4 % (0-3); HEMATOCRIT 43.3 % (36.0-47.0); HEMOGLOBIN 14.2 g/dL (12.0-15.5); LYMPH # 1.5 x10^3/uL (1.0-4.8); LYMPH % 29 % (24-48); MEAN CORPUSCULAR HEMOGLOBIN 28 pg (25-35); MEAN CORPUSCULAR HGB CONC 33 g/dL (31-37); MEAN CORPUSCULAR VOLUME 85 fL (79-100); MONO # 0.4 x10^3/uL (0.0-1.1); MONO % 7 % (0-9); NEUT # 3.2 x10^3uL (1.8-7.7); NEUT % 59 % (31-73); PLATELET COUNT 275 x10^3/uL (140-400); RED BLOOD COUNT 5.09 x10^6/uL (3.50-5.40); RED CELL DISTRIBUTION WIDTH 14.1 % (11.5-14.5); WHITE BLOOD COUNT 5.4 x10^3/uL (4.0-11.0)
[2018-06-01 07:05] LABS: ALBUMIN 3.7 g/dL (3.4-5.0); ALBUMIN/GLOBULIN RATIO 1.1 (1.0-1.7); CALCIUM 9.2 mg/dL (8.5-10.1); CREATININE 1.1 mg/dL (0.6-1.0); GFR 49.1; MAGNESIUM 1.9 mg/dL (1.8-2.4); POTASSIUM 3.7 mmol/L (3.5-5.1); TOTAL BILIRUBIN 0.4 mg/dL (0.2-1.0); TOTAL PROTEIN 7.1 g/dL (6.4-8.2)
--- NOTE | 2018-06-01 07:35 | EKG ---
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
--- NOTE | 2018-06-01 07:50 | RAD ---
Portable chest, 06/01/2018: HISTORY: Chest pain Comparison is made to a study from 05/28/2018. An electronic device is now evident projected over the left upper chest. The heart is within normal limits in size for the AP technique. The pulmonary vascularity is normal. No pulmonary infiltrate is seen. There is no evidence of pleural fluid. A left shoulder prosthesis is in place. IMPRESSION: No acute cardiopulmonary abnormality is detected. Electronically signed by: Ren Osorio MD (06/01/2018 7:47 AM) [facility]
[2018-06-01] MEDS ORDERED: IOHEXOL 350 MG/ML 100 ML VIAL. IV ONE (08:45)
--- NOTE | 2018-06-01 09:32 | RAD ---
PQRS Compliance Statement: One or more of the following individualized dose reduction techniques were utilized for this examination: 1. Automated exposure control 2. Adjustment of the mA and/or kV according to patient size 3. Use of iterative reconstruction technique CT CHEST WITH CONTRAST, PULMONARY ANGIOGRAM History: Increased D-Dimer, chest pain, A-Fib, shortness of air. Comparison: None. Technique: Helical CT of the chest was performed after the administration of 100 cc of Omnipaque 350 intravenous contrast according to PE protocol. Axial and coronal reconstructions were obtained. 3-D MIP images were constructed to better evaluate the pulmonary arteries. Findings: Pulmonary arteries are adequately opacified. There is no evidence of pulmonary embolism. There is no thoracic aortic dissection. The great vessels are normal caliber. There are subcentimeter mediastinal and bilateral hilar lymph nodes. There is no adenopathy. Cardiac size normal, no pericardial effusion. There is small hiatal hernia. There is circumferential wall thickening of the distal esophagus. No pleural effusion. The central airways are patent. Tiny calcified granuloma right upper lobe. There is minimal dependent atelectasis in the bilateral lower lobes. There is minimal atelectasis or scarring in the inferior lingula. Lungs otherwise clear. There is a 1.4 cm soft tissue mass of the uncinate process of the pancreas versus a christiana hepatis lymph node. Old compression fracture treated with vertebroplasty of the T9 vertebral body. There is slight retropulsion without significant central canal stenosis. There is left shoulder arthroplasty. IMPRESSION: 1. There is no CT evidence of pulmonary embolus. 2. There is small soft tissue mass of the uncinate process of the pancreas versus a christiana hepatis lymph node. Recommend further evaluation with pancreas protocol CT or MR abdomen. 3. Small hiatal hernia. 4. Circumferential wall thickening of the distal esophagus. Considerations include esophagitis, Ashby's esophagus, or esophageal neoplasm. Electronically signed by: Mushtaq Arroyo MD (06/01/2018 9:29 AM) [id number]
[2018-06-01 10:08] VITALS: BP 151/76
== END 2018-06-01 10:07 | disposition home or self-care (01) ==
LOC: ER 06:19
DX: R07.89 Other chest pain (principal); F41.9 Anxiety disorder, unspecified; K22.8 Other specified diseases of esophagus; R79.1 Abnormal coagulation profile; K44.9 Diaphragmatic hernia without obstruction or gangrene; I48.91 Unspecified atrial fibrillation; F32.9 Major depressive disorder, single episode, unspecified; I10 Essential (primary) hypertension; G43.909 Migraine, unspecified, not intractable, without status migrainosus; Z88.5 Allergy status to narcotic agent; Z88.1 Allergy status to other antibiotic agents; Z88.8 Allergy status to other drugs, medicaments and biological substances
CPT/HCPCS: 36415; 71045; 71275; 80053; 82550; 83690; 83735; 83880; 84484; 85025; 85379; 93005; 96374; 99284; J2060; Q9967

== ENCOUNTER → 2018-06-11 | Outpatient (CLI) | payer MEDICARE, OTHER ==
[2018-06-01 10:08] VITALS: BP 151/76
[~2018-06-11] MED LIST changes: +IOHEXOL 240 MG/ML 50ML VIAL. ONE; +IOHEXOL 300 MG/ML 75 ML VIAL. IV ONE
--- NOTE | 2018-06-11 12:58 | RAD ---
CT of the abdomen or with and without contrast, 06/11/2018: HISTORY: Pancreatic region mass Multidetector CT imaging was performed prior to and following an IV bolus injection of iodinated contrast material. Water was given by mouth as GI tract contrast. Multiplanar reconstructions were produced. The degree of contrast enhancement was suboptimal, likely related to the patient's size. The pancreas is somewhat atrophic with fatty change in the pancreatic head. There is a 1.7 cm x 1.3 solid nodule which cannot be from the uncinate process. This is likely of pancreatic origin, however, an adjacent enlarged lymph node could give a similar appearance. Review of a lumbar spine CT from 04/21/2014 shows that this nodule was present at that time and was of similar size. No other pancreatic abnormality is seen. There is a moderate sized hiatal hernia. No hepatic abnormality is seen. The gallbladder is unremarkable. The spleen is of normal size. There is mild bilateral renal scarring. The right kidney is malrotated. A 3.3 cm cyst is present in the lower pole of the right kidney. A tiny subcentimeter nodule in the lateral aspect of left kidney is too small to definitively characterize but is also probably a cyst. The aorta is unremarkable. No adenopathy is seen. The bowel loops are not dilated. No free fluid is evident in the abdomen. Scattered degenerative changes are present in the spine. There is a lower thoracic vertebral compression fracture with vertebroplasty change. IMPRESSION: 1. Pancreatic atrophy with fatty change in the pancreatic head. 2. Solid nodule related to the uncinate process of the pancreas which is probably of pancreatic origin. Its stability since an old CT lumbar spine study from 04/21/2014 favors a benign etiology. A pseudomass secondary to fatty change in the pancreatic head with sparing of the uncinate process could also give this appearance. CT follow-up is suggested to exclude a slowly growing neoplasm. 3. Moderate sized hiatal hernia. 4. Bilateral renal cysts. PQRS Compliance Statement: One or more of the following individualized dose reduction techniques were utilized for this examination: 1. Automated exposure control 2. Adjustment of the mA and/or kV according to patient size 3. Use of iterative reconstruction technique Electronically signed by: Ren Osorio MD (06/11/2018 12:55 PM) [facility]
== END | disposition home or self-care (01) ==
LOC: CT 08:29
PROVIDERS: ATTEND Registered Nurse
DX: K86.89 Other specified diseases of pancreas (principal); K44.9 Diaphragmatic hernia without obstruction or gangrene; N28.1 Cyst of kidney, acquired; M84.48XA Pathological fracture, other site, initial encounter for fracture; M79.9 Soft tissue disorder, unspecified
CPT/HCPCS: 74170; Q9967

== ENCOUNTER 2018-12-13 09:58 | Emergency (ER) | payer MEDICARE, OTHER ==
[~2018-12-13] VITALS: Ht 165.1 cm; Wt 117.0 kg
[~2018-12-13 09:58] MED LIST changes: -IOHEXOL 240 MG/ML 50ML VIAL. ONE; -IOHEXOL 300 MG/ML 75 ML VIAL. IV ONE
--- NOTE | 2018-12-13 10:31 | PHYS DOC ---
Past History Past Medical History: A-Fib, Anxiety, Depression, Hypertension, Migraines, Other Additional Past Medical Histor: pancreatic cancer; essential tremors Past Surgical History: Hysterectomy, Oophorectomy, Tonsillectomy, Other Additional Past Surgical Histo: whipple; spine; left shoulder replacement Smoking: Non-smoker Alcohol Use: None Drug Use: None Adult General Chief Complaint Chief Complaint: LACERATION/AVULSION HPI HPI Patient is a 68-year-old female presents complaining of left for head injury and left hand abrasion. This happened shortly prior to arrival. She tripped and fell. No syncopal episode. No loss of consciousness. No nausea or vomiting. Patient is on Eliquis for her atrial fibrillation. Bleeding was controlled with pressure. Pain is mild. No increased pain with movement of the hand. She is uncertain as to when her last tetanus vaccine was administered.[] Review of Systems Review of Systems Constitutional: Denies fever or chills [] Eyes: Denies change in visual acuity, redness, or eye pain [] HENT: Denies nasal congestion or sore throat [] Respiratory: Denies cough or shortness of breath [] Cardiovascular: No additional information not addressed in HPI [] GI: Denies abdominal pain, nausea, vomiting, bloody stools or diarrhea [] : Denies dysuria or hematuria [] Musculoskeletal: Denies back pain or joint pain [] Integument: Denies rash or skin lesions, see history of present illness [] Neurologic: Denies headache, focal weakness or sensory changes [] Endocrine: Denies polyuria or polydipsia [] All other systems were reviewed and found to be within normal limits, except as documented in this note. Allergies Allergies Allergies Coded Allergies Type Severity Reaction Last Updated Verified ampicillin Allergy Intermediate rash 12/13/18 No codeine Allergy Intermediate RASH 12/13/18 No eucalyptus Allergy Intermediate 12/13/18 Yes amitriptyline Allergy Unknown 12/13/18 Yes Physical Exam Physical Exam Constitutional: Well developed, well nourished, no acute distress, non-toxic appearance. [] HENT: Normocephalic, 2 lacerations in the left forehead, no foreign body. Bleeding is controlled. TMs are clear without any blood or fluid, no Cash sign, no raccoon eyes, bilateral external ears normal, oropharynx moist, no oral exudates, nose normal. [] Eyes: PERRLA, EOMI, conjunctiva normal, no discharge. [] Neck: Normal range of motion, no tenderness, supple, no stridor. No step-off or crepitus [] Cardiovascular:Heart rate regular rhythm, no murmur [] Lungs & Thorax: Bilateral breath sounds clear to auscultation [] Abdomen: Bowel sounds normal, soft, no tenderness, no masses, no pulsatile masses. Pelvis is stable in 3 planes [] Skin: Warm, dry, no erythema, no rash. [] Back: No tenderness, no CVA tenderness. [] Extremities: No tenderness, no cyanosis, no clubbing, ROM intact, no edema. Left hand has abrasions over the fourth and fifth MCP region. No suturable wound. Full active range of motion, FDS, FDP, and extensor mechanisms are intact. No pain with axial loading. A joint above and joined below were evaluated and were normal. [] Neurologic: Alert and oriented X 3, normal motor function, normal sensory function, no focal deficits noted. [] Psychologic: Affect normal, judgement normal, mood normal. [] Current Patient Data Vital Signs Vital Signs Date Time Temp Pulse Resp B/P (MAP) Pulse Ox O2 Delivery O2 Flow Rate FiO2 12/13/18 09:58 98.1 69 18 95 Room Air EKG EKG [] Radiology/Procedures Radiology/Procedures PROCEDURE: CT HEAD WO CONTRAST PQRS Compliance Statement: One or more of the following individualized dose reduction techniques were utilized for this examination: 1. Automated exposure control 2. Adjustment of the mA and/or kV according to patient size 3. Use of iterative reconstruction technique CT head without contrast 12/13/2018 10:27 AM INDICATION: Left forehead injury, on Eliquis COMPARISON: 01/04/2018 TECHNIQUE: Multiple axial CT images of the head were obtained from skull base through the vertex without intravenous contrast. FINDINGS: Head: Small left forehead hematoma is identified measuring 7 mm in maximal thickness. There is volume averaging within the frontal lobes with adjacent calvaria. There is a calcified extra-axial lesion in the left middle cranial fossa measuring 6 mm which is stable and likely a calcified meningioma. Dense dural based calcification noted. Ventricles, sulci and basal cisterns are within normal limits. There is no hydrocephalus. Molina-white matter differentiation is normal. There is no acute intracranial hemorrhage. There is no mass, mass effect or midline shift. Posterior fossa is normal in appearance. Visualized portions of the orbits are normal. Paranasal sinuses are well aerated. Mastoid air cells are well aerated. No calvarial defect identified. IMPRESSION: No acute intracranial hemorrhage. Left forehead scalp hematoma measuring 7 mm in maximal thickness. No underlying calvarial defect. Likely calcified meningioma in the left middle cranial fossa measuring 6 mm.[] Course & Med Decision Making Course & Med Decision Making Pertinent Labs and Imaging studies reviewed. (See chart for details) ED course: Patient arrived, was placed in bed, and tolerated exam well. She had her tetanus status updated. Wound was repaired as noted in laceration note. She was transported to and from [place] without any complications. After return the imaging findings, these were discussed with the patient who voiced understanding. She was discharged in improved condition with all questions answered. Medical decision making: There is no evidence of intractable bleeding. No evidence of intracranial mass or bleed. No evidence of this being a syncopal episode. No evidence of an open fracture.[] Dragon Disclaimer Dragon Disclaimer This electronic medical record was generated, in whole or in part, using a voice recognition dictation system. Departure Departure: Impression: Primary Impression: Laceration of forehead Additional Impression: Closed head injury Disposition: 01 HOME, SELF-CARE Condition: IMPROVED Referrals: [facility] (PCP) Follow-up in 2 days Patient Instructions: Head Injury, Adult, Sterile Tape Wound Closure Additional Instructions: Follow-up with your regular doctor in 2 days for a wound check. As the Steri- Strips start curling back, trim the edges until they fall off. Return to the ER if worsening pain, red streaks start coming from the wounds, or any other concerns. Laceration Repair Lac Repair Indication: Left facial laceration[] Procedure: The patient was placed in the appropriate position the wound was cleaned. There were total of 2 lacerations, each 2 cm across. They were closed utilizing Mastisol, Steri-Strips, and skin glue. Total repaired wound length: 4 cm. Other Items: None The patient tolerated the procedure well. Hemostasis was achieved. Complications: None. Problem Qualifiers Primary Impression: Laceration of forehead Encounter type: initial encounter Qualified Codes: S01.81XA - Laceration without foreign body of other part of head, initial encounter Additional Impression: Closed head injury Encounter type: initial encounter Qualified Codes: S09.90XA - Unspecified injury of head, initial encounter YAYA CUMMINGS DO Dec 13, 2018 10:31
[2018-12-13] MEDS ORDERED: DIPHTH,PERTUSS(ACELL),TET TOX 0.5 ML DISP.SYRIN. VAX IM ONE (11:00)
--- NOTE | 2018-12-13 11:40 | RAD ---
PQRS Compliance Statement: One or more of the following individualized dose reduction techniques were utilized for this examination: 1. Automated exposure control 2. Adjustment of the mA and/or kV according to patient size 3. Use of iterative reconstruction technique CT head without contrast 12/13/2018 10:27 AM INDICATION: Left forehead injury, on Eliquis COMPARISON: 01/04/2018 TECHNIQUE: Multiple axial CT images of the head were obtained from skull base through the vertex without intravenous contrast. FINDINGS: Head: Small left forehead hematoma is identified measuring 7 mm in maximal thickness. There is volume averaging within the frontal lobes with adjacent calvaria. There is a calcified extra-axial lesion in the left middle cranial fossa measuring 6 mm which is stable and likely a calcified meningioma. Dense dural based calcification noted. Ventricles, sulci and basal cisterns are within normal limits. There is no hydrocephalus. Molina-white matter differentiation is normal. There is no acute intracranial hemorrhage. There is no mass, mass effect or midline shift. Posterior fossa is normal in appearance. Visualized portions of the orbits are normal. Paranasal sinuses are well aerated. Mastoid air cells are well aerated. No calvarial defect identified. IMPRESSION: No acute intracranial hemorrhage. Left forehead scalp hematoma measuring 7 mm in maximal thickness. No underlying calvarial defect. Likely calcified meningioma in the left middle cranial fossa measuring 6 mm. Electronically signed by: Nelli Kevin MD (12/13/2018 11:37 AM) [facility]
[2018-12-13 12:09] VITALS: BP 145/72
== END 2018-12-13 12:09 | disposition home or self-care (01) ==
LOC: ER 09:58
DX: S01.81XA Laceration without foreign body of other part of head, initial encounter (principal); S60.512A Abrasion of left hand, initial encounter; I48.91 Unspecified atrial fibrillation; I10 Essential (primary) hypertension; G43.909 Migraine, unspecified, not intractable, without status migrainosus; Z79.899 Other long term (current) drug therapy; Z88.1 Allergy status to other antibiotic agents; Z88.5 Allergy status to narcotic agent; Z88.8 Allergy status to other drugs, medicaments and biological substances; W01.0XXA Fall on same level from slipping, tripping and stumbling without subsequent striking against object, initial encounter; Y93.89 Activity, other specified; Y92.89 Other specified places as the place of occurrence of the external cause; Y99.8 Other external cause status
CPT/HCPCS: 12013; 70450; 90471; 90715; 99284-25

== ENCOUNTER → 2019-03-24 | Outpatient (CLI) | payer MEDICARE, OTHER ==
--- NOTE | 2019-03-24 12:10 | RAD ---
EXAM: Dual energy x-ray absorptiometry (DEXA). HISTORY: Postmenopausal female presents for osteoporosis screening. COMPARISON: 05/12/2006. TECHNIQUE: Dual energy x-ray absorptiometry of the lumbar spine and right hip was performed. Calculation of bone mineral density based on standard deviations above or below the expected young adult normal value (T-score) was completed. FINDINGS: The average bone mineral density in the 1st through 4th lumbar vertebrae is 1.114 g/cmxcm, corresponding with a T-score of -0.5. There has been a 10.9% decrease in density of the lumbar spine compared to a baseline exam dated 05/12/2006. The average total bone mineral density in the right hip is 0.72 g/cmxcm, corresponding with a T-score of -1.4. There has been a 19.2% decrease in density of the right hip compared to a baseline exam dated 05/12/2006. IMPRESSION: 1. Osteopenia measured at the right hip. 2. Normal bone mineral density measured at the lumbar spine. 3. Decrease in bone mineral density compared to the baseline exam dated 05/12/2006. Note: Definitions established by the World Health Organization: 1. Normal: T-score is -1.0 or above. 2. Osteopenia: T-score is between -1.0 and -2.5 . 3. Osteoporosis: T-score is -2.5 or below. Electronically signed by: Cydney Terry MD (03/24/2019 12:07 PM) [id number]
--- NOTE | 2019-03-25 08:01 | RAD ---
History: Routine Screening. Technique: Bilateral digital mammographic routine views were obtained with CAD - computer aided detection. 2D and 3D imaging was performed. Comparison: 08/31/15. Findings: Breast Tissue Density A : The breast tissue is predominately fatty replaced. There are no suspicious masses, microcalcifications or areas of architectural distortion. Impression: Negative mammogram. BI-RADS Category 1: Negative. Normal interval followup. . A mammogram does not have 100% sensitivity and therefore a negative imaging study should not delay further work up of a suspicious abnormality. The patient will receive a letter with the results in the mail. Patient information is entered into the reminder system with a target due date for the next screening mammogram. The patient will receive a reminder. "Our facility is accredited by the [employer] Mammography Program." BI-RADS 1 -- negative findings (within normal)
== END | disposition home or self-care (01) ==
LOC: DXRAD 10:33
PROVIDERS: ATTEND Registered Nurse
DX: Z12.31 Encounter for screening mammogram for malignant neoplasm of breast (principal); M85.88 Other specified disorders of bone density and structure, other site; Z78.0 Asymptomatic menopausal state
CPT/HCPCS: 77063; 77067; 77080

== ENCOUNTER → 2019-06-27 | Outpatient (CLI) | payer MEDICARE, OTHER ==
[~2019-06-27] MED LIST changes: +MULT-445 PO; -MULT1TAB52 PO
--- NOTE | 2019-06-27 09:12 | RAD ---
KNEE BILAT 2V, KNEE STANDING BILAT AP History: Knee pain.. Right knee: Severe narrowing of the medial joint compartment. Milder narrowing at the lateral joint compartment and patellofemoral joint compartment. Generalized marginal osteophytes. Mild lateral shift of the tibia. No evidence of acute fracture. No aggressive bone destruction. No significant soft tissue abnormality. Left knee: Severe narrowing of the medial joint compartment. Milder narrowing of the lateral and patellofemoral joint compartment. Generalized osteophytes. Mild lateral tibial shift. Osseous structure overlies the anterior joint on the lateral view, may be a large osteophyte, loose body considered less likely. No aggressive bone destruction. No acute fracture. No acute soft tissue abnormality. 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 Electronically signed by: Jose Alfredo Angel MD (06/27/2019 9:10 AM) [id number]
== END ==
LOC: DXRAD 08:12
PROVIDERS: ATTEND Orthopaedic Surgery Sports Medicine
DX: M17.0 Bilateral primary osteoarthritis of knee (principal); M25.862 Other specified joint disorders, left knee; M25.861 Other specified joint disorders, right knee; M25.762 Osteophyte, left knee; M25.761 Osteophyte, right knee
CPT/HCPCS: 73560; 73565

== ENCOUNTER → 2020-05-24 | Outpatient (CLI) | payer MEDICARE, OTHER ==
--- NOTE | 2020-05-24 12:58 | RAD ---
EXAM: XR CHEST 2V INDICATION: Reason: PRODUCTIVE COUGH FOR A FEW WEEKS / Spl. Instructions: / History: . TECHNIQUE: PA and lateral views COMPARISON: None FINDINGS: The heart size is normal. The great vessels appear unremarkable. There is no hilar or mediastinal mass. The lungs are clear. There is no pleural effusion or pneumothorax. Vertebroplasty cement in the lower thoracic spine at approximately T9 is present, associated with mil d anterior wedge compression deformity. Left humeral hemiarthroplasty also noted. IMPRESSION: No active cardiopulmonary disease. Electronically signed by: Dylan Longoria MD (05/24/2020 12:56 PM) [id number]
== END ==
LOC: PMG 10:14
PROVIDERS: ATTEND Physician Assistant
DX: R05 Cough (principal)
CPT/HCPCS: 71046